=== PATIENT | male | born 1985 | race African-American/Black ===

== ENCOUNTER 2024-09-27 20:07 | Emergency (ER) | payer MEDICAID ==
[~2024-09-27] VITALS: Ht 106.7 cm; Wt 24.0 kg
[2024-09-27 20:14] VITALS: O2SAT 98
[2024-09-27 22:07] LABS: BASOPHILS % 0.7 % (0.0-2.0); EOSINOPHILS % 0.1 % (0.0-5.0); HEMATOCRIT. 37.5 % (42.0-52.0); HEMOGLOBIN. 12.4 g/dL (14.0-18.0); LYMPHOCYTES % 12.8 % (20.0-50.0); MEAN CORPUSCULAR HEMOGLOBIN 31.6 pg (28.0-32.0); MEAN CORPUSCULAR HGB CONC 33.1 g/dL (31.0-37.0); MEAN CORPUSCULAR VOLUME 95.7 fL (80.0-94.0); MEAN PLATELET VOLUME 8.3 fl (7.4-10.4); MONOCYTES % 5.3 % (2.0-8.0); NEUTROPHILS % 81.1 % (40.0-76.0); PLATELET 335 x1000/uL (130-400); RED BLOOD CELL COUNT 3.92 mill/uL (4.7-6.1); RED CELL DISTRIBUTION WIDTH 13.6 % (11.6-14.6); WHITE BLOOD COUNT 10.2 x1000/uL (4.5-11.0)
[2024-09-27 22:14] LABS: CARBON DIOXIDE 22 mEq/L (21-32); CHLORIDE 102 mEq/L (98-107); POTASSIUM 3.8 mEq/L (3.5-5.1); SODIUM 141 mEq/L (136-145)
[2024-09-27 22:15] LABS: CALCIUM 10.4 mg/dL (8.7-10.4)
[2024-09-27 22:20] LABS: CREATININE 0.8 mg/dL (0.6-1.3); GLUCOSE 201 mg/dL (70-105); UREA NITROGEN BLOOD 12 mg/dL (9-23)
[2024-09-27] MEDS: ACETAMINOPHEN 325MG TABLET PO ONE (23:22)
[2024-09-27] MEDS: SODIUM CHLORIDE 0.9% 500 ML IV NR (23:45)
[2024-09-27 23:51] LABS: CLARITY URINE CLOUDY (CLEAR); COLOR URINE YELLOW (YELLOW); GLUCOSE URINE NEGATIVE (NEGATIVE); KETONES URINE 1+ (NEGATIVE); LEUKOCYTE ESTERASE URINE NEGATIVE (NEGATIVE); NITRITE URINE NEGATIVE (NEGATIVE); OCCULT BLOOD URINE NEGATIVE (NEGATIVE); PROTEIN URINE 2+ (NEGATIVE); SPECIFIC GRAVITY URINE 1.022 (1.005-1.030); UROBILINOGEN URINE 0.2 E.U./dL (0.2-1.0)
[2024-09-28 00:07] LABS: *AMPHETAMINES SCREEN URINE NEGATIVE (NEGATIVE); *BENZODIAZEPINES SCREEN URINE NEGATIVE (NEGATIVE)
[2024-09-28 00:08] LABS: *BARBITURATES SCREEN URINE NEGATIVE (NEGATIVE); *COCAINE SCREEN URINE NEGATIVE (NEGATIVE); CANNABINOID URINE SCREEN NEGATIVE (NEGATIVE); ECSTASY MDMA SCREEN URINE NEGATIVE (NEGATIVE); METHADONE URINE SCREEN NEGATIVE (NEGATIVE); OPIATES URINE SCREEN NEGATIVE (NEGATIVE); PHENCYCLIDINE URINE SCREEN NEGATIVE (NEGATIVE)
[2024-09-28 00:24] VITALS: BP 108/56; PULSE 120; RESP 16; TEMP 37.55856; O2SAT 97
[2024-09-28] MEDS ORDERED: BACL-141 MT (01:20)
[2024-09-28] MEDS ORDERED: IBUP-2437 MT (01:20)
[2024-09-28] MEDS: IBUPROFEN 200MG TABLET PO ONE (02:05)
[2024-09-28 02:08] LABS: RBC URINE 0-2 /hpf (0-2); WBC URINE 0-2 /hpf (0-2)
[2024-09-28 02:09] LABS: AMORPHOUS SEDIMENT URINE 1+ /lpf; BACTERIA URINE NONE SEEN; SQUAMOUS EPITHELIAL CELL URINE NONE SEEN /lpf (RARE/1+)
== END 2024-09-28 02:20 | disposition home or self-care (01) ==
LOC: ER 20:07
DX: R55 Syncope and collapse (principal); Z00.00 Encounter for general adult medical examination without abnormal findings
CPT/HCPCS: 80305; 80048; 81003; 85025; 36415; 71045; 70450; 93005; 96365; 99285; Z7610